=== PATIENT | male | born 1935 | race Caucasian/White ===

== ENCOUNTER → 2016-09-19 | Day surgery (SDC) | payer MEDICARE, BC ==
[~2016-09-19] VITALS: Ht 185.4 cm; Wt 106.0 kg
[~2016-09-19] MED LIST: FLOMAX0.4 MG PO
--- NOTE | ~2016-09-19 | HP ---
PATIENT'S NAME: POLI COOK [facility] AGE: 81 Y [address] 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 He then had several recurrences, but since 2000, he had no evidence of any recurrent tumors. In April 2015, while he was in [place], he again developed gross hematuria and was found to have recurrent transitional cell carcinoma of the bladder which was resected transurethrally. Presently, he is doing fine and voiding without difficulty. No dysuria, burning, or hematuria. He is seen now for followup cystoscopy. PAST MEDICAL HISTORY: ILLNESSES: None. OPERATIONS: 1. Left knee arthroscopy. 2. TUR of the prostate. 3. TUR of bladder tumors. ALLERGIES: PENICILLIN. PHYSICAL EXAMINATION: GENERAL: A well-developed, well-nourished male. CHEST: Clear to auscultation. HEART: Normal sinus rhythm. ABDOMEN: Soft, with no palpable masses. GENITOURINARY: Normal penis. Testicles are normal. Prostate is flat and benign to palpation. RECTAL: Negative. IMPRESSION: PATIENT'S NAME: POLI COOK [facility] AGE: 81 Y [address] ROOM: [place] [address] LOCATION: [facility] [place] ADMIT DATE: 09/19/2016 History & Physical DISCHARGE DATE: FAMILY PHYSICIAN: MARCUS MAN MD ATTENDING PHYSICIAN: Ben Hoff Transitional cell carcinoma of the bladder. PLAN: Followup cystoscopy. BEN HOFF MD EKL/modl /[id number] D: 414 T: 454 HISTORY & PHYSICAL
--- NOTE | ~2016-09-19 | OR ---
PATIENT'S NAME: POLI COOK [facility] AGE: 81 Y [address] ROOM: [place] [id number] LOCATION: [facility] [place] ADMIT DATE: 09/19/2016 OR/Procedure Report DISCHARGE DATE: FAMILY PHYSICIAN: MARCUS MAN MD ATTENDING PHYSICIAN: Ben Hoff SURGEON: Ben Hoff MD DIGITAL PERFORMANCE ANALYST: DATE OF PROCEDURE: 09/19/2016 PREOPERATIVE DIAGNOSIS: Carcinoma of the bladder. POSTOPERATIVE DIAGNOSIS: No recurrence. PROCEDURE PERFORMED: Cystoscopy, retrograde. DESCRIPTION OF PROCEDURE: After adequate anesthesia, was prepped and draped. Cystoscope was passed. Anterior urethra was normal. Prostatic fossa was opened. Examination of the bladder revealed diffuse trabeculation and some cellule formation. There were no changes of carcinoma in situ or papillary tumors. The retrograde pyelograms were done using a whistle-tipped catheter. He was then accompanied to recovery area. RETROGRADE PYELOGRAM REPORT: The initial film showed degenerative changes of the lumbar spine. After the injection of contrast media, the ureter was normal course and caliber. The collecting systems appeared normal. IMPRESSION: Normal retrograde pyelogram. BEN HOFF MD EKL/modl /[id number] d: 09/19/16 0707 t: 09/20/16 0449, OPERATIVE SUMMARY
== END ==
LOC: GPOC 09-13 11:00 → GSDC 05:28
PROC: BT14YZZ Fluoroscopy of Kidneys, Ureters and Bladder using Other Contrast (ICD-10-PCS; principal; 2016-09-19)
DX: C67.9 Malignant neoplasm of bladder, unspecified (principal); Z88.0 Allergy status to penicillin; Z87.891 Personal history of nicotine dependence; Z96.653 Presence of artificial knee joint, bilateral
CPT/HCPCS: J2001; J7030